=== PATIENT | female | born 1975 | race Caucasian/White ===

== ENCOUNTER 2020-09-30 14:26 | Emergency (ER) | payer MEDICARE, BC ==
[~2020-09-30] VITALS: Ht 170.2 cm; Wt 73.6 kg
[2020-09-30] MEDS ORDERED: IV NORMAL SALINE 1000ML BAG 1,000 ML IV ONE (16:30)
[2020-09-30] MEDS ORDERED: diphenhydrAMINE 50 MG/ML VIAL IVP ONE (16:30)
[2020-09-30] MEDS ORDERED: PROCHLORPERAZINE 10 MG/2 ML VIAL. IV ONE (16:30)
[2020-09-30] MEDS ORDERED: IV NORMAL SALINE 500ML BAG 500 ML IV ONE (16:30)
[2020-09-30] MEDS ORDERED: DEXAMETHASONE SOD PHOS 20 MG/5 ML VIAL. IV ONE (16:30)
--- NOTE | 2020-09-30 16:44 | RAD ---
EXAM: AP View of the chest DATE: 09/30/2020 4:38 PM INDICATION: Reason: chest pain / Spl. Instructions: / History: COMPARISON: No Prior FINDINGS: Heart is mildly enlarged. Aorta is tortuous. Small pleural effusions. Bilateral lung base predominant airspace opacities. No pneumothorax. IMPRESSION: Cardiomegaly with bilateral pleural effusions and parenchymal opacities may be seen with pulmonary ed akila. Multifocal pneumonia would also have this appearance. Electronically signed by: Shon Ortiz MD (09/30/2020 4:42 PM) ASHLEY
--- NOTE | 2020-09-30 16:48 | RAD ---
EXAM: CT head without contrast INDICATION: Headache COMPARISON: None TECHNIQUE: Axial CT imaging through the head without intravenous contrast. One or more of the following individualized dose reduction techniques were utilized for this examinat ion: 1. Automated exposure control 2. Adjustment of the mA and/or kV according to patient size 3. Use of iterative reconstruction technique. FINDINGS: The ventricles are moderately enlarged, greater than expected for age. There is mild sulcal enlargeme nt. Sanford-white matter differentiation is maintained. No intracranial hemorrhage, acute infarct, or ma ss lesion. The skull and scalp are intact. Paranasal sinuses and mastoid air cells are clear. Globes and orbits are intact. IMPRESSION: 1. No acute intracranial abnormality. 2. Moderately enlarged ventricles. This is likely related to volume loss but is greater than expected for age and slightly greater than the degree of sulcal enlargement. Correlate clinically. Electronically signed by: Crystal Cruz MD (09/30/2020 4:46 PM) [id number]
[2020-09-30 16:59] LABS: BASO % 1 % (0-3); EOS # 0.1 x10^3/uL (0.0-0.7); EOS % 2 % (0-3); HEMATOCRIT 21.5 % (36.0-47.0); HEMOGLOBIN 7.3 g/dL (12.0-15.5); LYMPH # 0.6 x10^3/uL (1.0-4.8); LYMPH % 15 % (24-48); MEAN CORPUSCULAR HEMOGLOBIN 31 pg (25-35); MEAN CORPUSCULAR HGB CONC 34 g/dL (31-37); MEAN CORPUSCULAR VOLUME 92 fL (79-100); MONO # 0.4 x10^3/uL (0.0-1.1); MONO % 11 % (0-9); NEUT # 2.7 x10^3/uL (1.8-7.7); NEUT % 71 % (31-73); PLATELET COUNT 110 x10^3/uL (140-400); RED BLOOD COUNT 2.34 x10^6/uL (3.50-5.40); RED CELL DISTRIBUTION WIDTH 14.7 % (11.5-14.5); WHITE BLOOD COUNT 3.9 x10^3/uL (4.0-11.0)
--- NOTE | 2020-09-30 17:02 | ED.ADGEN ---
Past Medical History Past Medical History: Anemia, CHF, Hypertension, Renal Failure, Other Additional Past Medical Histor: CKD,ESRD,NEUROPATHY,SHINGLES,PERITONEAL DIALYSIS,HYPERPARATHYROIDISM Past Surgical History: Cholecystectomy, Hysterectomy, Other Additional Past Surgical Histo: HERNIA,ORTHOPEDIC,KIDNEY BX,L ARM FISTULA Smoking Status: Never Smoker Alcohol Use: None General Adult EDM: Chief Complaint: MULTIPLE COMPLAINTS HPI: HPI: Patient is a 45 year old female, who presents emergency department with complaints of headache, body aches, and fatigue that began after starting acyclovir that she was prescribed for treatment of left thoracic shingles. Patient states she did not start taking medication until September 282020. She was seen by her primary care doctor last week and diagnosed with the shingles. She denies any fever, cough, sore throat, dizziness, nasal congestion, numbness, tingling, nausea, vomiting, diarrhea, abdominal pain, or loss of taste/smell. Patient states she feels generally weak. She also complains of having substernal chest pain that she rates a 10 out of 10 on the pain scale she denies any radiation of the pain, diaphoresis, or palpitations. Patient states she tried taking Tylenol yesterday for relief of her headache with no improvement. She denies any vision changes. She currently rates her pain a 10 out of 10 on the pain scale she states it is in the frontal part of her head and in the left flank where her shingles are. She denies any alleviating factors. She states she has been taking previously prescribed oxycodone for relief of her shingle pain but denies any benefit. Review of Systems: Review of Systems: Complete ROS is negative unless otherwise noted in HPI. Current Medications: Current Medications Medications (Trade) Dose Ordered Sig/Davis Start Time Stop Time Status Last Admin Dose Admin Dexamethasone Sodium Phosphate (Decadron) 10 mg 1X ONCE 09/30/20 16:30 09/30/20 16:31 DC 09/30/20 16:52 10 MG Diphenhydramine HCl (Benadryl) 25 mg 1X ONCE 09/30/20 16:30 09/30/20 16:31 DC 09/30/20 16:52 25 MG Prochlorperazine Edisylate (Compazine) 10 mg 1X ONCE 09/30/20 16:30 09/30/20 16:31 DC 09/30/20 16:52 10 MG Sodium Chloride 500 ml @ 500 mls/hr 1X ONCE 09/30/20 16:30 09/30/20 17:29 DC 09/30/20 16:51 500 MLS/HR Allergies: Allergies: Allergies Coded Allergies Type Severity Reaction Last Updated Verified Latex, Natural Rubber Allergy Unknown UNKNOWN 09/30/20 Yes Penicillins Allergy Unknown UNKNOWN 09/30/20 Yes codeine Allergy Unknown UNKNOWN 09/30/20 Yes Physical Exam: PE: See Above Constitutional: Well developed, well nourished, no acute distress, appears ill and uncomfortable HENT: Normocephalic, atraumatic, bilateral external ears normal, nose normal. [] Eyes: PERRLA, EOMI, conjunctiva normal, no discharge. [] Neck: Normal range of motion, no stridor. [] Cardiovascular:Heart rate regular rhythm Lungs & Thorax: Respirations even and unlabored, no retractions, no respiratory distress Abdomen: soft, no tenderness Skin: Warm, dry, no erythema; scabbed lesions to the left flank patient reports diagnosis of shingles last week Extremities: No cyanosis, ROM intact, no edema. [] Neurologic: Alert and oriented X 3, no focal deficits noted. [] Psychologic: Affect irritable, judgement normal, mood normal. [] Current Patient Data: Labs: Laboratory Tests Test 09/30/20 16:10 09/30/20 17:38 White Blood Count 3.9 x10^3/uL (4.0-11.0) L Red Blood Count 2.34 x10^6/uL (3.50-5.40) L Hemoglobin 7.3 g/dL (12.0-15.5) L Hematocrit 21.5 % (36.0-47.0) L Mean Corpuscular Volume 92 fL (79-100) Mean Corpuscular Hemoglobin 31 pg (25-35) Mean Corpuscular Hemoglobin Concent 34 g/dL (31-37) Red Cell Distribution Width 14.7 % (11.5-14.5) H Platelet Count 110 x10^3/uL (140-400) L Neutrophils (%) (Auto) 71 % (31-73) Lymphocytes (%) (Auto) 15 % (24-48) L Monocytes (%) (Auto) 11 % (0-9) H Eosinophils (%) (Auto) 2 % (0-3) Basophils (%) (Auto) 1 % (0-3) Neutrophils # (Auto) 2.7 x10^3/uL (1.8-7.7) Lymphocytes # (Auto) 0.6 x10^3/uL (1.0-4.8) L Monocytes # (Auto) 0.4 x10^3/uL (0.0-1.1) Eosinophils # (Auto) 0.1 x10^3/uL (0.0-0.7) Basophils # (Auto) 0.0 x10^3/uL (0.0-0.2) Sodium Level 137 mmol/L (136-145) Potassium Level 6.4 mmol/L (3.5-5.1) *H Chloride Level 96 mmol/L (98-107) L Carbon Dioxide Level 23 mmol/L (21-32) Anion Gap 18 (6-14) H Blood Urea Nitrogen 87 mg/dL (7-20) H Creatinine 17.3 mg/dL (0.6-1.0) H Estimated GFR (Cockcroft-Gault) 2.2 BUN/Creatinine Ratio 5 (6-20) L Glucose Level 103 mg/dL (70-99) H Calcium Level 8.8 mg/dL (8.5-10.1) Magnesium Level 2.3 mg/dL (1.8-2.4) Total Bilirubin 0.5 mg/dL (0.2-1.0) Aspartate Amino Transferase (AST) 8 U/L (15-37) L Alanine Aminotransferase (ALT) 12 U/L (14-59) L Alkaline Phosphatase 76 U/L (46-116) Creatine Kinase 75 U/L (26-192) Creatine Kinase MB (Mass) 2.3 ng/mL (0.0-3.6) Creatine Kinase MB Relative Index % (0-4) Troponin I Quantitative 0.065 ng/mL (0.000-0.055) YF-Oof-Z-Type Natriuretic Peptide > 91673 pg/mL (0-124) H Total Protein 6.8 g/dL (6.4-8.2) Albumin 2.9 g/dL (3.4-5.0) L Albumin/Globulin Ratio 0.7 (1.0-1.7) L Lipase 54 U/L (73-393) L Laboratory Tests 09/30/20 16:10 Laboratory Tests 09/30/20 17:38 Vital Signs: Vital Signs Date Time Temp Pulse Resp B/P (MAP) Pulse Ox O2 Delivery O2 Flow Rate FiO2 09/30/20 18:12 81 21 178/87 (117) 95 Nasal Cannula 2.0 09/30/20 15:25 97.7 97.7 EKG: EK-sinus rhythm rate 76, no STEMI, read by Dr. Loya [] Heart Score: C/O Chest Pain: Yes HEART Score for Chest Pain: HEART Score for Chest Pain Response (Comments) Value History Slighlty/Non-Suspicious 0 ECG Normal 0 Age >45 - < 65 1 Risk Factors >3 Risk Factors or Hx CAD 2 Troponin >1-<3x Normal Limit 1 Total 4 Risk Scores: Score 0 - 3: 2.5% MACE over next 6 weeks - Discharge Home Score 4 - 6: 20.3% MACE over next 6 weeks - Admit for Clinical Observation Score 7 - 10: 72.7% MACE over next 6 weeks - Early Invasive Strategies Radiology/Procedures: Radiology/Procedures: PROCEDURE: CT HEAD WO CONTRAST EXAM: CT head without contrast INDICATION: Headache COMPARISON: None TECHNIQUE: Axial CT imaging through the head without intravenous contrast. One or more of the following individualized dose reduction techniques were utilized for this examination: 1. Automated exposure control 2. Adjustment of the mA and/or kV according to patient size 3. Use of iterative reconstruction technique. FINDINGS: The ventricles are moderately enlarged, greater than expected for age. There is mild sulcal enlargement. Sanford-white matter differentiation is maintained. No intracranial hemorrhage, acute infarct, or mass lesion. The skull and scalp are intact. Paranasal sinuses and mastoid air cells are clear. Globes and orbits are intact. IMPRESSION: 1. No acute intracranial abnormality. 2. Moderately enlarged ventricles. This is likely related to volume loss but is greater than expected for age and slightly greater than the degree of sulcal enlargement. Correlate clinically. Electronically signed by: Crystal Cruz MD (09/30/2020 4:46 PM) [id number][] Course & Med Decision Making: Course & Med Decision Making Pertinent Labs and Imaging studies reviewed. (See chart for details) 8-I spoke with Dr. Pinto about the patient who agrees to admit her for PUI, hypoxia, and chest pain. 184-I spoke with the patient and advised her of the decision to admit to the hospital. We discussed her labs and imaging results. I advised her that I would like to admit her to the hospital for PUI, hypoxia, and chest pain. I informed patient of her elevated potassium and troponin. The patient refused to stay in the hospital. I advised her of the risk of and myocardial injury. Patient continues to request to leave AGAINST MEDICAL ADVICE. Patient was informed of her need for dialysis with the elevated potassium, she stated that her potassium is always high. Patient was provided with AMA paperwork and signed out. Gini Disclaimer: Gini Disclaimer: This electronic medical record was generated, in whole or in part, using a voice recognition dictation system. Departure Departure Impression: Primary Impression: Left against medical advice Disposition: 07 LEFT AGAINST MEDICAL ADVICE Condition: STABLE Referrals: NON,STAFF (PCP) ANDREW LUIS SEAM RUBBER Sep 30, 2020 17:02
[2020-09-30 18:12] VITALS: BP 178/87
[2020-09-30 18:16] LABS: ALBUMIN 2.9 g/dL (3.4-5.0); ALBUMIN/GLOBULIN RATIO 0.7 (1.0-1.7); CALCIUM 8.8 mg/dL (8.5-10.1); CREATININE 17.3 mg/dL (0.6-1.0); GFR 2.2; MAGNESIUM 2.3 mg/dL (1.8-2.4); TOTAL BILIRUBIN 0.5 mg/dL (0.2-1.0); TOTAL PROTEIN 6.8 g/dL (6.4-8.2)
[2020-09-30 18:20] LABS: CREATINE KINASE 75 U/L (26-192)
[2020-09-30 18:28] LABS: POTASSIUM 6.4 mmol/L (3.5-5.1)
--- NOTE | 2020-09-30 19:00 | EKG ---
[facility] [address] [place] [address] Test Date: 2020-09-30 Test Time: 15:43:13 Pat Name: MAILE FU Department: Room: Gender: F Rating Clerk: : 1975 Requested By: ANDREW LUIS Order Number: [id number] Reading MD: Measurements Intervals Sesser Rate: 76 P: 137 MT: 154 QRS: 124 QRSD: 108 T: 127 QT: 398 QTc: 452 Interpretive Statements SINUS RHYTHM ABNORMAL RIGHT AXIS DEVIATION CONSIDER RIGHT VENTRICULAR HYPERTROPHY QRS(T) CONTOUR ABNORMALITY CONSISTENT WITH HIGH LATERAL INFARCT AGE UNDETERMINED ABNORMAL ECG RI6.02 No previous ECG available for comparison
--- NOTE | 2020-10-02 09:15 | NUR ---
IP: Informed pt of negative covid test. Pt verbalized understanding.
== END 2020-09-30 18:50 | disposition left against medical advice (07) ==
LOC: ER 14:56
DX: R51.9 Headache, unspecified (principal); Z20.822 Contact with and (suspected) exposure to COVID-19; M79.10 Myalgia, unspecified site; R53.83 Other fatigue; I13.2 Hypertensive heart and chronic kidney disease with heart failure and with stage 5 chronic kidney disease, or end stage renal disease; N18.6 End stage renal disease; I50.9 Heart failure, unspecified; Z99.2 Dependence on renal dialysis; Z88.0 Allergy status to penicillin; Z88.5 Allergy status to narcotic agent
CPT/HCPCS: 36415; 70450; 71045; 80053; 82553; 83690; 83735; 83880; 84484; 85025; 93005; 96361; 96374; 96375; 99285; J0780; J1100; J1200; J7040; U0003; U0005